=== PATIENT | male | born 1965 | race Caucasian/White ===

== ENCOUNTER 2017-11-30 07:31 | Day surgery (SDC) | payer BC ==
[2017-11-30] MEDS ORDERED: PROPOFOL 20 ML ONE ×3 (07:35)
[2017-11-30 07:42] VITALS: BMI 21.2
[2017-11-30 07:49] VITALS: TEMP 97.8
[2017-11-30] MEDS ORDERED: LIDOCAINE HCL/PF 2% SDV 5ML VIAL ONE (07:58)
[2017-11-30 14:08] VITALS: BP 127/72; PULSE 59
--- NOTE | 2017-12-02 12:57 | PATH ---
Surgical Pathology Report Patient Name: FAUSTO ARANGO [facility]. Rec. #: [id number] /Age/Gender: 1965 (Age: 52) / M Account: [id number] Location: [facility]ENDOS[facility] Taken: 11/30/2017 Received: 11/30/2017 Reported: 12/02/2017 Physicians: Joel Hines M.D. Specimen(s) Received A: BX DUODENUM B: BX ANTRUM C: BX LEFT COLON D: BX CECUM E: BX RIGHT COLON F: BX HEPATIC FLEXURE G: BX RECTUM Clinical History Preoperative diagnosis: Peptic ulcer disease, rule out colon cancer Postoperative diagnosis: Gastritis, duodenitis, gastric ulcer, colonic polyps Final Diagnosis A. DUODENUM, BIOPSY: DUODENAL MUCOSA WITHOUT SIGNIFICANT PATHOLOGIC FINDINGS. B. STOMACH, ANTRUM, BIOPSY: GASTRIC ANTRAL MUCOSA WITH SEVERE CHRONIC ACTIVE GASTRITIS. IMMUNOHISTOCHEMICAL STAIN FOR H. PYLORI IS POSITIVE (MANY). C. COLON, LEFT, BIOPSY: TUBULAR ADENOMA. D. CECUM, BIOPSY: TUBULAR ADENOMA. E. COLON, RIGHT, BIOPSY: TUBULAR ADENOMA. F. COLON, HEPATIC FLEXURE, BIOPSY: TUBULAR ADENOMA. G. RECTUM, BIOPSY: TUBULAR ADENOMA. Electronically Signed Luz Duenas M.D. Gross Description A. Received in formalin, labeled "duodenum" are 2 chiu, irregular portions of soft tissue measuring 0.3 and 0.5 cm. in greatest dimension. The specimens are submitted in toto in one cassette. B. Received in formalin, labeled "antrum" are 2 chiu, irregular portions of soft tissue measuring 0.3 and 0.5 cm. in greatest dimension. The specimens are submitted in toto in one cassette. C. Received in formalin labeled "left colon," is a 0.7 x 0.5 x 0.3 cm chiu, polypoid portion of soft tissue. The specimen is submitted in toto in one cassette. D. Received in formalin labeled "cecum," is a 0.7 x 0.4 x 0.2 cm chiu, polypoid portion of soft tissue. The specimen is submitted in toto in one cassette. E. Received in formalin labeled "right colon," is a 1.3 x 0.9 x 0.3 cm chiu, polypoid portion of soft tissue. The specimen is submitted in toto in one cassette. F. Received in formalin, labeled "hepatic flexure" are 5 chiu, irregular portions of soft tissue ranging from 0.3-0.9 cm. in greatest dimension. The specimens are submitted in toto in one cassette. G. Received in formalin labeled "rectum," is a 1.4 x 0.8 x 0.5 cm chiu-brown, polypoid portion of soft tissue. The specimen is bisected and entirely submitted in one cassette. DL12/01/2017 saudi12/01/2017
== END 2017-11-30 10:15 | disposition home or self-care (01) ==
LOC: FASU-ENDO 07:31
PROVIDERS: ATTEND Internal Medicine Gastroenterology
PROC: 0DBH8ZX Excision of Cecum, Via Natural or Artificial Opening Endoscopic, Diagnostic (ICD-10-PCS; 2017-11-30)
PROC: 0DB98ZX Excision of Duodenum, Via Natural or Artificial Opening Endoscopic, Diagnostic (ICD-10-PCS; 2017-11-30)
PROC: 0DB68ZX Excision of Stomach, Via Natural or Artificial Opening Endoscopic, Diagnostic (ICD-10-PCS; 2017-11-30)
PROC: 0DBK8ZX Excision of Ascending Colon, Via Natural or Artificial Opening Endoscopic, Diagnostic (ICD-10-PCS; principal; 2017-11-30 08:44)
PROC: 0DBL8ZX Excision of Transverse Colon, Via Natural or Artificial Opening Endoscopic, Diagnostic (ICD-10-PCS; 2017-11-30 08:44)
PROC: 0DBP8ZX Excision of Rectum, Via Natural or Artificial Opening Endoscopic, Diagnostic (ICD-10-PCS; 2017-11-30 08:44)
DX: Z12.11 Encounter for screening for malignant neoplasm of colon (principal); D12.0 Benign neoplasm of cecum; D12.2 Benign neoplasm of ascending colon; D12.4 Benign neoplasm of descending colon; K29.50 Unspecified chronic gastritis without bleeding; B96.81 Helicobacter pylori [H. pylori] as the cause of diseases classified elsewhere; K29.80 Duodenitis without bleeding; R12 Heartburn
CPT/HCPCS: 88305-TC; 88342-TC